=== PATIENT | male | born 1970 | race Caucasian/White ===

== ENCOUNTER 2020-12-19 21:49 | Emergency (ER) | payer OTHER ==
[2020-12-19 22:02] VITALS: BP 139/90; PULSE 84; RESP 16; TEMP 97.9
--- NOTE | 2020-12-19 22:27 | ED ---
General Adult HPI - General Chief complaint: Recheck/Abnormal Lab/Rx Stated complaint: Covid test Time Seen by Provider: 12/19/20 22:04 Source: patient Mode of arrival: ambulatory Limitations: no limitations - History of Present Illness Initial comments: 50-year-old male presents to emergency Department chief complaint of Covid testing. Patient reports he needs this for international travel to [place]. He denies any complaints. He is only requesting a test and printed results. - Related Data Allergies Allergy/AdvReac Type Severity Reaction Status Date / Time No Known Allergies Allergy Verified 12/19/20 22:00 Review of Systems ROS Statement: Those systems with pertinent positive or pertinent negative responses have been documented in the HPI. ROS Other: All systems not noted in ROS Statement are negative. Past Medical History Past Medical History: No Reported History History of Any Multi-Drug Resistant Organisms: None Reported Past Surgical History: Tonsillectomy Past Psychological History: No Psychological Hx Reported Smoking Status: Never smoker Past Alcohol Use History: None Reported Past Drug Use History: None Reported General Exam Limitations: no limitations General appearance: alert, in no apparent distress Head exam: Present: atraumatic, normocephalic, normal inspection Eye exam: Present: normal appearance, PERRL Pupils: Present: normal accommodation ENT exam: Present: normal exam, normal oropharynx, mucous membranes moist Neck exam: Present: normal inspection, full ROM. Absent: tenderness Respiratory exam: Present: normal lung sounds bilaterally Cardiovascular Exam: Present: regular rate, normal rhythm, normal heart sounds Extremities exam: Present: normal inspection, full ROM Back exam: Present: normal inspection, full ROM Neurological exam: Present: alert, oriented X3, normal gait Psychiatric exam: Present: normal affect, normal mood Skin exam: Present: warm, dry, intact, normal color Course Vital Signs 12/19/20 22:00 Temperature 97.9 F Pulse Rate 84 Respiratory 16 Rate Blood Pressure 139/90 O2 Sat by Pulse 97 Oximetry Medical Decision Making - Medical Decision Making Negative Covid test. He was given documents. - Lab Data Lab Results 12/19/20 Range/Units 22:12 Coronavirus (PCR) Not Detected (Not Detectd) Disposition Clinical Impression: Lab test negative for COVID-19 virus Disposition: HOME SELF-CARE Condition: Stable Instructions (If sedation given, give patient instructions): Coronavirus Disease 2019 (COVID-19) Additional Instructions: Please return to the Emergency Department if symptoms worsen or any other concerns. Is patient prescribed a controlled substance at d/c from ED?: No Referrals: Nonstaff,Physician [Primary Care Provider] - 1-2 days Time of Disposition: 22:50
== END 2020-12-19 23:00 | disposition home or self-care (01) ==
LOC: EC 21:49
DX: Z20.822 Contact with and (suspected) exposure to COVID-19 (principal)
CPT/HCPCS: 87635; 99282